=== PATIENT | female | born 1995 | race Caucasian/White ===

== ENCOUNTER 2017-07-29 22:40 | Emergency (ER) | payer SELFPAY ==
--- NOTE | 2017-07-29 23:21 | EDM.PDOC ---
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 The patient states that for the last 6 weeks she has had cramping in her pelvis every day that is not new or different tonight but she did notice some brown discharge in her underwear but no bright red blood clots or tissue. The brown discharge she only noticed this evening and she has since put in a light pad in her underwear. She has no flank pain or urinary complaints but she has had nausea without vomiting or diarrhea. The patient has no significant gynecological history that she admits to and she has been eating and drinking normally. She has not had fevers or upper respiratory symptoms and has no other abdominal pain. The patient newly relocated here from [place] and only recently found that she was a home test and has not sought care yet. The patient states she last had sexual intercourse last evening without complication. Review of systems: As per history of present illness and below otherwise all systems reviewed and negative. Past medical history: As per history of present illness and as reviewed below otherwise noncontributory. Surgical history: As per history of present illness and as reviewed below otherwise noncontributory. Social history: No reported history of drug or alcohol abuse. Family history: As per history of present illness and as reviewed below otherwise noncontributory. Physical exam: Gen.: Well-developed well-nourished thin female who is nontoxic and vital signs have been reviewed by me. HEENT: Atraumatic, normocephalic, negative for conjunctival pallor or scleral icterus, mucous membranes moist, throat clear, neck supple, nontender, trachea midline. Lungs: Clear to auscultation, breath sounds equal bilaterally, chest nontender. Heart: S1S2, regular rate and rhythm no overt murmurs are appreciated Abdomen: Soft, nondistended, nontender. On deep palpation there is no lower abdominal or pelvic tenderness rebound or guarding. Negative for masses or hepatosplenomegaly. Bowel sounds are normoactive Pelvis: Stable nontender. Genitourinary: Deferred. Rectal: Deferred. Extremities: Atraumatic, negative for cords or calf pain. Neurovascular unremarkable. Neuro: Awake, alert, oriented. Cranial nerves II through XII unremarkable. Cerebellum unremarkable. Motor and sensory unremarkable throughout. Exam nonfocal. Diagnostics: CBC serum quantitative hCG ABO Rh typing UA, urine culture if indicated, pelvic ultrasound Therapeutics: Also the results were discussed with the patient and family at bedside. She is aware that she should maintain strict pelvic rest until she is followed up in the clinic and I will give her referrals for our options here in [facility]. 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 Impression: Threatened Definitive disposition and diagnosis as appropriate pending reevaluation and review of above. - Related Data Allergies Allergy/AdvReac Type Severity Reaction Status Date / Time No Known Allergies Allergy Verified 07/29/17 23:10 Home Meds: Home Meds Iron,Carbonyl/Vit C/Vit B12/Fa [Iron 100 Plus Tablet] 1 tab PO DAILY 07/29/17 [ History] PNV95/Ferrous Fumarate/FA [ Tablet] 1 tab PO DAILY 07/29/17 [History] ED ROS GENERAL - Review of Systems Review Of Systems: ROS reveals no pertinent complaints other than HPI. ED EXAM, GENERAL - Physical Exam Exam: See Below (See dictation) Course - Vital Signs Last Recorded V/S: Last Vital Signs Temp 37.2 C 07/29/17 23:07 Pulse 89 07/29/17 23:07 Resp 12 07/29/17 23:07 BP 111/67 07/29/17 23:07 Pulse Ox 97 07/29/17 23:07 - Orders/Labs/Meds Orders: Active Orders 24 hr Category Date Time Status OB Transvaginal [US] Stat Exams 07/30/17 00:01 Taken Labs: Laboratory Tests 07/29/17 07/29/17 07/29/17 Range/Units 23:11 23:23 23:23 WBC 11.19 H (4.0-11.0) K/uL RBC 4.37 (4.30-5.90) M/uL Hgb 12.8 (12.0-16.0) g/dL Hct 38.1 (36.0-46.0) % MCV 87.2 (80.0-98.0) fL MCH 29.3 (27.0-32.0) pg MCHC 33.6 (31.0-37.0) g/dL RDW Std Deviation 41.1 (28.0-62.0) fl RDW Coeff of Ruth 13 (11.0-15.0) % Plt Count 283 (150-400) K/uL MPV 10.30 (7.40-12.00) fL Neut % (Auto) 69.4 (48.0-80.0) % Lymph % (Auto) 22.7 (16.0-40.0) % Perkins % (Auto) 7.3 (0.0-15.0) % Eos % (Auto) 0.4 (0.0-7.0) % Baso % (Auto) 0.2 (0.0-1.5) % Neut # (Auto) 7.8 H (1.4-5.7) K/uL Lymph # (Auto) 2.5 H (0.6-2.4) K/uL Perkins # (Auto) 0.8 (0.0-0.8) K/uL Eos # (Auto) 0.0 (0.0-0.7) K/uL Baso # (Auto) 0.0 (0.0-0.1) K/uL Nucleated RBC % 0.0 /100WBC Nucleated RBCs # 0 K/uL HCG, Quant 31496.0 mIU/mL Urine Color YELLOW Urine Appearance HAZY Urine pH 5.5 (5.0-8.0) Ur Specific [employer] 1.020 (1.001-1.035) Urine Protein NEGATIVE (NEGATIVE) mg/dL Urine Glucose (UA) NEGATIVE (NEGATIVE) mg/dL Urine Ketones TRACE H (NEGATIVE) mg/dL Urine Occult Blood SMALL H (NEGATIVE) Urine Nitrite NEGATIVE (NEGATIVE) Urine Bilirubin NEGATIVE (NEGATIVE) Urine Urobilinogen 0.2 (<2.0) EU/dL Ur Leukocyte Esterase NEGATIVE (NEGATIVE) Urine RBC 1-2 (0-2/HPF) Urine WBC 0-2 (0-5/HPF) Ur Epithelial Cells FEW (NONE-FEW) Urine Bacteria FEW (NEGATIVE) Blood Type 07/29/17 Range/Units 23:23 WBC (4.0-11.0) K/uL RBC (4.30-5.90) M/uL Hgb (12.0-16.0) g/dL Hct (36.0-46.0) % MCV (80.0-98.0) fL MCH (27.0-32.0) pg MCHC (31.0-37.0) g/dL RDW Std Deviation (28.0-62.0) fl RDW Coeff of Ruth (11.0-15.0) % Plt Count (150-400) K/uL MPV (7.40-12.00) fL Neut % (Auto) (48.0-80.0) % Lymph % (Auto) (16.0-40.0) % Perkins % (Auto) (0.0-15.0) % Eos % (Auto) (0.0-7.0) % Baso % (Auto) (0.0-1.5) % Neut # (Auto) (1.4-5.7) K/uL Lymph # (Auto) (0.6-2.4) K/uL Perkins # (Auto) (0.0-0.8) K/uL Eos # (Auto) (0.0-0.7) K/uL Baso # (Auto) (0.0-0.1) K/uL Nucleated RBC % /100WBC Nucleated RBCs # K/uL HCG, Quant mIU/mL Urine Color Urine Appearance Urine pH (5.0-8.0) Ur Specific [employer] (1.001-1.035) Urine Protein (NEGATIVE) mg/dL Urine Glucose (UA) (NEGATIVE) mg/dL Urine Ketones (NEGATIVE) mg/dL Urine Occult Blood (NEGATIVE) Urine Nitrite (NEGATIVE) Urine Bilirubin (NEGATIVE) Urine Urobilinogen (<2.0) EU/dL Ur Leukocyte Esterase (NEGATIVE) Urine RBC (0-2/HPF) Urine WBC (0-5/HPF) Ur Epithelial Cells (NONE-FEW) Urine Bacteria (NEGATIVE) Blood Type O POSITIVE Departure - Departure Time of Disposition: 01:21 Disposition: Home, Self-Care 01 Condition: Good Clinical Impression: Threatened - Discharge Information Referrals: PCP,None [Primary Care Provider] - Forms: ED Department Discharge Additional Instructions: The following information is given to patients seen in the emergency department who are being discharged to home. This information is to outline your options for follow-up care. We provide all patients seen in our emergency department with a follow-up referral. The need for follow-up, as well as the timing and circumstances, are variable depending upon the specifics of your emergency department visit. If you don't have a primary care physician on staff, we will provide you with a referral. We always advise you to contact your personal physician following an emergency department visit to inform them of the circumstance of the visit and for follow-up with them and/or the need for any referrals to a consulting specialist. The emergency department will also refer you to a specialist when appropriate. This referral assures that you have the opportunity for followup care with a specialist. All of these measure are taken in an effort to provide you with optimal care, which includes your followup. Under all circumstances we always encourage you to contact your private physician who remains a resource for coordinating your care. When calling for followup care, please make the office aware that this follow-up is from your recent emergency room visit. If for any reason you are refused follow-up, please contact the [facility] emergency department at and ask to speak to the emergency department charge nurse. [facility] [address] [place] [address] [facility] Primary care-Women's [facility] [address] [place] [address]. [address] [address] Please contact a provider for care as we discussed and strict pelvic rest until followed up in the clinic. Push hydration rest and try to eat healthy meals. Return to ER as needed and as discussed - My Orders Last 24 Hours: My Active Orders 07/30/17 00:01 OB Transvaginal [US] Stat - Assessment/Plan Last 24 Hours: My Active Orders 07/30/17 00:01 OB Transvaginal [US] Stat
--- NOTE | 2017-07-30 14:56 | US ---
EXAM DATE: 07/29/17 PATIENT'S AGE: 22 Patient: JEF SHARMA Facility: [place], [place] Site . Site : [id number] Study: US OB Pelvis -07/30/2017 12:53:20 AM Ordering Physician: Amador Hawthorne Final Report: INDICATION: Vaginal Spotting TECHNIQUE: OB ultrasound. COMPARISON: None. FINDINGS: Single live intrauterine with cardiac activity recorded 132 beats per minute. The crown-rump length measures 0.3 cm with an estimated sonographic gestational age of 5 weeks 6 days. Tiny crescentic region of low echogenicity inferior to the gestational sac seen on series 1, image 19. Both ovaries are visualized and normal in sonographic appearance and color Doppler flow. IMPRESSION: 1. Single live intrauterine with cardiac activity recorded at 132 beats per minute. The composite sonographic gestational age measures 5 weeks 6 days. 2. Tiny crescentic region of low echogenicity inferior to the gestational sac. This could represent artifact versus a true tiny subchorionic hemorrhage. Dictated by Suhas Rivera MD @ 07/30/2017 1:04:50 AM Dictated by: Suhas Rivera MD @ 07/30/2017 01:04:57 (Electronic Signature) Report Signed by Proxy. ALAN
== END 2017-07-30 01:31 | disposition home or self-care (01) ==
LOC: MW.ED 22:40
DX: O20.0 Threatened abortion (principal); Z3A.01 Less than 8 weeks gestation of pregnancy
CPT/HCPCS: 36415; 76817; 76817-26; 81001; 84702; 85025; 86900; 86901; 99284; 99284-25